=== PATIENT | female | born 1940 | race Caucasian/White ===

== ENCOUNTER 2016-08-31 19:58 | Emergency (ER) | payer MEDICARE ==
[~2016-08-31] VITALS: Ht 152.4 cm; Wt 92.0 kg
[~2016-08-31 19:58] MED LIST: ACET-2766 PO; ASPI325T32 PO; CETI10CA PO; COLC0.6T52 PO; OSLT75C PO; PRED1DRO OP; SLO64 PO; SPIR25TA3 PO
[2016-08-31 20:42] VITALS: BP 151/87; PULSE 85; RESP 18; O2SAT 98
--- NOTE | 2016-08-31 21:01 | ED.REPORT ---
HPI-General Illness Date of Service Aug 31, 2016 ED Provider: Will Albert MD A 76 year old female with a history of hypertension, hypoaldosteronism and hyperlipidemia presents to the ED complaining of possible influenza. She began experiencing sore throat, productive cough, diarrhea, fever, chills, diaphoresis , nausea and heaving at 11:00 this morning. She denies hematemesis, bloody sputum, vomiting or rash. The pt has experienced similar symptoms multiple times this year. Nursing Notes Stated Complaint: FLU SYMPTOMS Chief Complaint: FLU/Cold Symptoms Nursing Notes Reviewed: Yes Allergies: Coded Allergies: Cephalosporins (Verified Allergy, Severe, HIVES, 01/30/16) Penicillins (Verified Allergy, Severe, Giant hives, 01/30/16) atenolol (Unverified Allergy, Severe, SOB, 01/30/16) doxycycline (Verified Allergy, Severe, NEPHROTIC SYNDROME, 01/30/16) hydrocodone (Unverified Allergy, Severe, ITCHING, 01/30/16) hydromorphone (Verified Allergy, Severe, Nausea,Vomiting, 01/30/16) hydroxychloroquine sulfate (Verified Allergy, Severe, RASH, 01/30/16) ibuprofen (Unverified Allergy, Severe, HTN,CONFUSION, 01/30/16) iodine (Verified Allergy, Severe, ITCH, 01/30/16) morphine (Verified Allergy, Severe, ITCHING, 01/30/16) latex (Verified Allergy, Intermediate, CHILLS AND SHAKES, 01/30/16) Chlorine (Verified Allergy, Unknown, Skin breakout, 01/30/16) Chlorine in pool and air caused skin and lung problems dexamethasone (Unverified Allergy, Unknown, Kidney shut down, 01/30/16) omeprazole (Unverified Allergy, Unknown, UNKNOWN, 01/30/16) oxycodone HCl (Verified Allergy, Unknown, Itching, 01/30/16) allopurinol (Unverified Adverse Reaction, Severe, VERTIGO,Ataxia, 01/30/16 ) amitriptyline (Verified Adverse Reaction, Severe, HALLUCINATIONS, 01/30/16 ) calcium (Unverified Adverse Reaction, Severe, Esophageal spasm, 01/30/16) folic acid (Verified Adverse Reaction, Severe, Nerve pain, 01/30/16) lisinopril (Verified Adverse Reaction, Severe, FATIGUE, 01/30/16) lovastatin (Verified Adverse Reaction, Severe, MYALGIAS, 01/30/16) phenazopyridine (Unverified Adverse Reaction, Severe, BONE PAIN,SOB, LETHARGY, 01/30/16) vitamin E (d-alpha tocopherol) (Unverified Adverse Reaction, Severe, DIZZY , 01/30/16) Uncoded Allergies: SHELLFISH (Allergy, Severe, SOB, 05/01/14) VITAMIN B (Allergy, Severe, NERVE PAIN, 05/01/14) DISSOLVABLE SUTURE (Adverse Reaction, Severe, DOES NOT DISSOLVE, 05/01/14) VITAMIN D (Adverse Reaction, Severe, BONE PAIN,SOB,LETHARGY, 05/01/14) Scheduled Acetaminophen (Tylenol Arthritis) 650 Mg Tablet.er 650 MG PO BID Aspirin (Aspirin) 325 Mg Tablet 325 MG PO BID Cetirizine HCl (Zyrtec) 10 Mg Capsule 5 MG PO HS Magnesium Chloride (Slow-Mag) 64 Mg Tablet 64 MG PO Sun,Noris,Sun Oseltamivir Phosphate (Tamiflu) 10 Cap/Pkg Capsule 75 MG PO BID Spironolactone (Spironolactone) 25 Mg Tablet 50 MG PO Sun,Noris, Fri Scheduled PRN Benzonatate (Tessalon Perle) 100 Mg Capsule 100 MG PO TID PRN PRN For Cough Colchicine (Colcrys) 0.6 Mg Tablet 0.6 MG PO DAILY PRN PRN GOUT Ondansetron ODT (Ondansetron ODT) 8 Mg Tab.rapdis 8 MG PO QID PRN PRN For Nausea Prednisolone Acetate (Pred Forte) 1 Ml Drops.susp 1 ML OP BID PRN PRN PRN General Time Seen by MD: 21:00 Chief Complaint Other (Possible influenza) Hx Obtained From: Patient Arrived By: Walk-in Sudden in Onset?: No Onset Occurred: 9 - 12 hours ago Symptom Duration: Since onset Recent Healthcare: Recent doctor visit Similar Sx Previous: Yes Past Medical History Past Medical History Hypertension Hyperlipidemia GERD Cholecystitis s/p cholecystectomy Hypoaldosteronism Pneumonia Edema Past Surgical History Right knee replacement Cholecystectomy BTL Family History Noncontributory Smoking History Former Smoker Social History Other Social History: Local resident Ambulatory Status Independent Review of Systems Full Review of Systems Constitutional: Reports: Chills, Fever Ears / Nose / Throat: Reports: Sore throat Respiratory: Reports: Prod cough, clear, Denies: Prod cough, bloody, Shortness of breath Cardiovascular: Denies: Chest pain GI: Reports: Nausea, Denies: Hematemesis, Vomiting Musculoskeletal: Denies: Back pain, Neck pain Skin: Reports Diaphoresis, Denies Rash Complete sys rev & neg: except as marked. Physical Exam Vital Signs Vital Signs Date Time Temp Pulse Resp B/P Pulse Ox O2 Delivery O2 Flow Rate FiO2 08/31/16 20:42 36.0 85 18 151/87 98 Room Air Initial VS: Reviewed General/Constitutional: Awake, Alert Appearance / Presentation: Positive: Obese Head / Eyes: Atraumatic, Normocephalic, PERRL, EOMI ENT: Atraumatic, Airway patent, Mucous membranes moist, Pharynx NL Neck: Atraumatic, Supple, Full range of motion Respiratory / Chest: Atraumatic, Breath sounds NL, Breath sounds = bilat, No respiratory distress Cardiovascular: Heart rate NL, Regular rhythm, Heart sounds NL Abdomen: Atraumatic, Soft, Non-tender Back: Atraumatic, Full range of motion Upper Extremities Upper Extremity / MS: Atraumatic, Full range of motion Lower Extremity / Pelvis / MS: Atraumatic, Full range of motion Skin: Atraumatic, Color NL, No rash, Warm mild diaphoresis Neurologic: Oriented X3, Speech NL, No motor deficits, No sensory deficits Psychiatric: Affect NL, Mood NL Interpretation & Diagnostics Lab Results Interpretation Result Diagram: 08/31/16 22008/31/16 2204 Test 08/31/16 22:04 White Blood Count 11.7th/mm3 (3.8-10.1) Red Blood Count 4.67mil/mm3 (3.90-5.20) Hemoglobin 13.3g/dL (12.0-15.6) Hematocrit 40.5% (35.0-46.0) Mean Corpuscular Volume 86.7fL (81-100) Mean Corpuscular Hemoglobin 28.5pg (27.0-35.0) Mean Corpuscular Hemoglobin Concent 32.8% (32.0-37.0) Red Cell Distribution Width 13.6% (12.3-15.4) Platelet Count 276bil/L (150-400) Neutrophils (%) (Auto) 89.9% (40-74) Lymphocytes (%) (Auto) 6.2% (14-46) Monocytes (%) (Auto) 3.4% (4-12) Eosinophils (%) (Auto) 0.1% (0-5) Basophils (%) (Auto) 0.2% (0-3) Prothrombin Time 11.2sec (8.1-12.5) Prothromb Time International Ratio 1.05ratio Activated Partial Thromboplast Time 25.7sec (22.8-33.0) Sodium Level 136mEq/L (134-144) Potassium Level 4.5mEq/L (3.5-5.2) Chloride Level 97mEq/L (97-108) Carbon Dioxide Level 20mmol/L (18-29) Blood Urea Nitrogen 14mg/dL (8-27) Creatinine 0.89mg/dL (0.57-1.00) Estimat Glomerular Filtration Rate 88mL/min (>59) Glucose Level 141mg/dL (60-99) Calcium Level 9.8mg/dL (8.5-10.1) Magnesium Level 2.0mg/dL (1.6-2.6) Total Bilirubin 0.4mg/dL (0.0-1.2) Aspartate Amino Transf (AST/SGOT) 16U/L (0-50) Alanine Aminotransferase (ALT/SGPT) 13U/L (0-32) Alkaline Phosphatase 102U/L (25-165) Pro-B-Type Natriuretic Peptide 407.3pg/mL (0-738) Total Protein 7.8g/dL (6.4-8.4) Albumin 4.4g/dL (3.4-5.0) Procalcitonin 0.07ng/mL (0.00-0.08) ECG Interpretation ECG Interpretation: sinus or ectopic atrial rhythm with a rate of 80 LVH Time: 21:50 Interpreted by: ED physician X-Ray Chest Interpretation Chest Xray Interpretation: IMPRESSION: 1. No acute cardiopulmonary disease. Dictated by: Stefano Moreno M.D. on 08/31/2016 at 21:33 Approved by: Stefano Moreno M.D. on 08/31/2016 at 21:34 Interpretation / Wet Read by: Interpret - ED physician Re-Eval/Medical Decision Med Decision/Clinical Course [age] year old female presents with cough, aches, fever, but also vomiting and diarrhea with some dehydration. She expresses this as "flu",, but this is of course negative, given the season. There is no evidence of bacterial pneumonia and no indication for antibiotics. She was given fluids, nausea relief, nausea really for home use. Discharged in stable and improved condition. Source of Hx: Old records Time of Eval: 23:38 Patient Status: Condition improved Re-Evaluation/Progress Note: Pt rechecked, who is resting comfortably. The diagnosis and plan for discharge are discussed. The pt understands and agrees with the plan. All questions are addressed at this time. Counseled Regarding: Diagnosis, Lab results, Need for follow-up, When/why to return to ED Discharge & Departure Primary Impression: Bronchitis Additional Impressions: Reactive airway disease that is not asthma Dehydration Diarrhea Fever Vomiting Disposition: Home Discharge Condition All VS Reviewed: Yes Condition: Stable Patient Instructions: Acute Abdominal Pain in Children (GEN), Acute Diarrhea ( ED), Dehydration (ED) Additional Instructions: Use your puffer and spacer as needed for cough. This is not because of asthma, but challenge here upper airway produces bronchospasm, and bronchospasm produces cough. Drink plenty of fluids and stay well-hydrated. Gatorade, Powerade, or Pedialyte would be good choices. Zofran if needed for nausea, four times daily. We generally do not suppress diarrhea, as it prolongs the course. Just keep up with your fluid losses with oral electrolyte fluid replacement. Referrals: Noam Martinez MD (PCP) Scribe Attestation Portions of this note were transcribed by Willis Costa. I, Dr. Albert personally performed the history, physical exam and medical decision-making; I reviewed and confirmed the accuracy of the information in the transcribed note. Signed by: Aleksey Rodrigues, 09/01/2016 and 0006. copies to: Noam Martinez MD, Christopher W MD Aug 31, 2016 21:01 WILLIS COSTA Aug 31, 2016 21:08
[2016-08-31] MEDS ORDERED: 0.9% Sodium Chloride 1,000 ML IV ONE (21:06)
[2016-08-31] MEDS ORDERED: Albuterol-Ipratropium 3 mL Inhalation Solution NEB ONE (21:10)
--- NOTE | 2016-08-31 21:36 | DRSVH ---
PROCEDURE: X-RAY CHEST, TWO VIEWS ([id number]) INDICATIONS: cough, fever TECHNIQUE: 2 views of the chest were acquired. COMPARISON: [facility], CR, XR CHEST 2VW, 01/30/2016, 7:51. FINDINGS: Surgical changes and devices: None. Lungs and pleura: No pleural effusions or pneumothorax. Lungs are clear. Mediastinum: Mediastinal contours are normal. Heart size is normal. Bones and chest wall: No suspicious bony abnormalities. Soft tissues appear unremarkable. IMPRESSION: 1. No acute cardiopulmonary disease. Dictated by: Stefano Moreno M.D. on 08/31/2016 at 21:33 Approved by: Stefano Moreno M.D. on 08/31/2016 at 21:34
[2016-08-31 22:08] LABS: BASOPHILS % (AUTO) 0.2 % (0-3); EOSINOPHILS % (AUTO) 0.1 % (0-5); MONOCYTES % (AUTO) 3.4 % (4-12); Mean Corpuscular Hemoglobin 28.5 pg (27.0-35.0); Mean Corpuscular Volume 86.7 fL (81-100); NEUTROPHILS % (AUTO) 89.9 % (40-74); Platelet Count 276 bil/L (150-400)
[2016-08-31 22:27] LABS: INR 1.05 ratio
[2016-08-31] MEDS ORDERED: _Proair 200 Puff/8.5 GM Inhaler INHALATION PRN (23:40)
[2016-08-31] MEDS ORDERED: BENZ-12 PO (23:46)
[2016-08-31] MEDS ORDERED: ONDA8TAB10 PO (23:46)
[2016-09-01] MEDS ORDERED: 0.9% Sodium Chloride 1,000 ML IV ONE
== END 2016-09-01 00:37 | disposition home or self-care (01) ==
LOC: SED 19:58
DX: J40 Bronchitis, not specified as acute or chronic (principal); J98.8 Other specified respiratory disorders; E86.0 Dehydration; R19.7 Diarrhea, unspecified; R50.9 Fever, unspecified; R11.2 Nausea with vomiting, unspecified; I10 Essential (primary) hypertension; E78.5 Hyperlipidemia, unspecified; K21.9 Gastro-esophageal reflux disease without esophagitis; Z79.82 Long term (current) use of aspirin; Z87.01 Personal history of pneumonia (recurrent); Z87.891 Personal history of nicotine dependence; Z88.0 Allergy status to penicillin; Z88.1 Allergy status to other antibiotic agents; Z88.5 Allergy status to narcotic agent; Z88.8 Allergy status to other drugs, medicaments and biological substances; Z91.040 Latex allergy status
CPT/HCPCS: 36415; 71020; 80053; 83735; 83880; 84145; 85025; 85610; 85730; 87040; 87633; 87804; 93005; 94640; 96360; 99285; J7030; J7620